=== PATIENT | female | born 2005 | race Caucasian/White ===

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

== ENCOUNTER 2024-02-13 10:54 | Inpatient (IN) | payer MEDICAID ==
[~2024-02-13] VITALS: Ht 160 cm; Wt 92.7 kg
[2024-02-13 12:45] VITALS: BP 117/60; TEMP 97.2; O2SAT 99
[2024-02-13] MEDS ORDERED: ACET1TAB55 PO (16:47)
[2024-02-13] MEDS ORDERED: METH-1164 PO (16:47)
[2024-02-13] MEDS ORDERED: CAPS42.54 TOP (16:47)
[2024-02-13] MEDS ORDERED: PREG25CA PO (16:47)
[2024-02-13] MEDS ORDERED: MORP15TA2 PO (16:47)
[2024-02-13] MEDS ORDERED: MIRA3350 PO (16:47)
[2024-02-13] MEDS ORDERED: DOCU100C16 PO (16:47)
[2024-02-13] MEDS ORDERED: LIDO1ADH20 TP (16:47)
[2024-02-13] MEDS ORDERED: IBUP1TAB5 PO (16:47)
[2024-02-13] MEDS ORDERED: SENN-186 PO (16:47)
[2024-02-13] MEDS ORDERED: MOM30SS2 PO (16:47)
[2024-02-13] MEDS ORDERED: THERTAB52 PO (16:47)
[2024-02-13] MEDS ORDERED: FLOM0.4C39 PO (16:47)
[2024-02-13] MEDS ORDERED: HOME MED LIST COMPLETE! XX SCH (16:50)
[2024-02-13] MEDS: methocarbamoL 500 MG TAB PO SCH (17:55)
[2024-02-13] MEDS: IBUPROFEN 400MG TAB PO PRN (17:55)
[2024-02-13 20:02] VITALS: BP 110/65; TEMP 97.9; O2SAT 98
[2024-02-13] MEDS: SENNA 8.6 MG TAB (SENOKOT) PO SCH (20:32)
[2024-02-13] MEDS: DOCUSATE SODIUM 100MG CAPSULE PO SCH (20:33)
[2024-02-13] MEDS: PREGABALIN 25 MG CAP (LYRICA) PO SCH (20:33)
[2024-02-13] MEDS: ENOXAPARIN 40MG/0.4ML SYRINGE (J1650 PER 10MG) SC SCH (20:34)
[2024-02-14 04:51] VITALS: BP 114/64; TEMP 97.8; O2SAT 96
[2024-02-14 06:18] LABS: BASO # 0.1 10^3/uL (0.0-0.2); BASO % 0.9 % (0.0-1.0); EOS # 0.1 10^3/uL (0.0-0.5); EOS % 1.8 % (0.0-3.0); HEMATOCRIT 33.4 % (36.0-47.0); HEMOGLOBIN 10.6 g/dl (12.0-15.5); LYMPH # 1.9 10^3/uL (1.5-5.0); LYMPH % 23.6 % (24.0-44.0); MEAN CORPUSCULAR HEMOGLOBIN 29.1 pg (27.0-33.0); MEAN CORPUSCULAR HGB CONC 31.7 g/dl (32.0-36.5); MEAN CORPUSCULAR VOLUME 91.8 fl (80.0-96.0); MONO # 0.5 10^3/uL (0.0-0.8); MONO % 6.8 % (2.0-8.0); NEUTROPHILS # 5.2 10^3/uL (1.5-8.5); NEUTROPHILS % 65.5 % (36.0-66.0); PLATELET COUNT, AUTOMATED 603 10^3/uL (150-450); RED BLOOD COUNT 3.64 10^6/uL (4.00-5.40); WHITE BLOOD COUNT 7.9 10^3/uL (4.0-10.0)
[2024-02-14] MEDS: MSIR PO PRN (06:37)
[2024-02-14] MEDS: MORPHINE 15 MG PO PRN (06:37)
[2024-02-14 06:46] LABS: ALBUMIN 3.1 G/DL (3.2-5.2); ALKALINE PHOSPHATASE 183 U/L (35-104); ALT/SGPT 36 U/L (7.0-40); AST/SGOT < 8 U/L (<34); BILIRUBIN,TOTAL 0.5 MG/DL (0.3-1.2); BLOOD UREA NITROGEN 13 MG/DL (9-23); CALCIUM LEVEL 9.7 MG/DL (8.5-10.1); CARBON DIOXIDE LEVEL 27 MMOL/L (20-31); CHLORIDE LEVEL 106 MMOL/L (98-107); GLUCOSE, FASTING 95 MG/DL (60-100); POTASSIUM SERUM 4.6 MMOL/L (3.5-5.1); SODIUM LEVEL 140 MMOL/L (136-145); TOTAL PROTEIN 6.6 G/DL (5.7-8.2)
[2024-02-14] MEDS: TAMSULOSIN 0.4 MG CAP PO SCH (07:07)
[2024-02-14] MEDS: LIDOCAINE 5% (LIDODERM) PATCH TD SCH (07:08)
[2024-02-14] MEDS: MOM 30ML SUSPENSION UDC PO SCH (07:12)
[2024-02-14] MEDS: MIRALAX *UNIT DOSE* 17GM PACKET PO SCH (07:13)
[2024-02-14 12:00] VITALS: BP 104/59; TEMP 98.3; O2SAT 97
[2024-02-14] MEDS: ACETAMINOPHEN 325 MG TAB PO PRN (19:59)
[2024-02-14 20:00] VITALS: BP 108/56; TEMP 97; O2SAT 100
[2024-02-15 04:00] VITALS: BP 109/68; TEMP 97.9; O2SAT 97
[2024-02-15 08:50] VITALS: BP 97/56; TEMP 101.1; O2SAT 87
[2024-02-15 12:00] VITALS: BP 120/62; TEMP 98.5; O2SAT 98
[2024-02-15 16:13] LABS: Trichomonas vaginalis (AMP) NOT DETECTED (NEGATIVE)
[2024-02-15 16:37] LABS: GC DNA AMPLIFICATION NEGATIVE (NEGATIVE)
[2024-02-15 20:00] VITALS: BP 98/50; TEMP 98.1; O2SAT 100
[2024-02-15] MEDS: RAMELTEON 8 MG TAB (ROZEREM) PO PRN (21:53)
[2024-02-16 04:00] VITALS: BP 119/63; TEMP 98.9; O2SAT 96
[2024-02-16 07:31] LABS: HEMATOCRIT 36.5 % (36.0-47.0); HEMOGLOBIN 11.4 g/dl (12.0-15.5); MEAN CORPUSCULAR HEMOGLOBIN 28.6 pg (27.0-33.0); MEAN CORPUSCULAR HGB CONC 31.2 g/dl (32.0-36.5); MEAN CORPUSCULAR VOLUME 91.7 fl (80.0-96.0); PLATELET COUNT, AUTOMATED 593 10^3/uL (150-450); RED BLOOD COUNT 3.98 10^6/uL (4.00-5.40); WHITE BLOOD COUNT 7.1 10^3/uL (4.0-10.0)
[2024-02-16 12:00] VITALS: BP 118/62; TEMP 98; O2SAT 95
[2024-02-16 19:52] VITALS: BP 108/61; TEMP 98.4; O2SAT 98
[2024-02-17 04:19] VITALS: BP 113/65; TEMP 97.4; O2SAT 96
[2024-02-17 12:00] VITALS: BP 111/56; TEMP 97.7; O2SAT 95
[2024-02-17 15:47] LABS: APPEARANCE, URINE HAZY (CLEAR); BACTERIA, URINE AUTO 1+ (NEGATIVE); BILIRUBIN, URINE AUTO NEGATIVE (NEGATIVE); BLOOD, URINE BLOOD NEGATIVE (NEGATIVE); COLOR, URINE YELLOW (YELLOW); GLUCOSE, URINE (UA) AUTO NEGATIVE (NEGATIVE); KETONE, URINE AUTO NEGATIVE (NEGATIVE); LEUKOCYTE ESTERASE, URINE AUTO 1+ (NEGATIVE); MUCUS, URINE SMALL (NEGATIVE); NITRITE, URINE AUTO NEGATIVE (NEGATIVE); PROTEIN, URINE AUTO NEGATIVE (NEGATIVE); RBC, URINE AUTO 1 /HPF (0-3); SPECIFIC GRAVITY URINE AUTO 1.014 (1.002-1.035); SQUAMOUS EPITHELIAL CELL UR AU 4 /HPF (0-6); WBC, URINE AUTO 43 /HPF (0-3)
[2024-02-17 19:38] VITALS: BP 125/60; TEMP 97.6; O2SAT 98
[2024-02-17] MEDS: NITROFURANTOIN (MACROBID) 100 MG CAP PO SCH (21:10)
[2024-02-18 04:49] VITALS: BP 105/58; TEMP 98; O2SAT 97
[2024-02-18] MEDS: PANTOPRAZOLE 20 MG TAB PO SCH (09:46)
[2024-02-18 12:39] VITALS: BP 116/62; TEMP 97.8; O2SAT 97
[2024-02-18] MEDS ORDERED: ONDANSETRON 4MG ORAL DISINTEGRATING TAB PO PRN (14:05)
[2024-02-18] MEDS: DICLOFENAC EPOLAMINE 1.3% PATCH TOP ONE (15:02)
[2024-02-18 19:48] VITALS: BP 110/58; TEMP 98.6; O2SAT 98
[2024-02-19 04:11] VITALS: BP 109/61; TEMP 98.1; O2SAT 98
[2024-02-19 06:38] LABS: HEMATOCRIT 36.1 % (36.0-47.0); HEMOGLOBIN 11.2 g/dl (12.0-15.5); MEAN CORPUSCULAR HEMOGLOBIN 28.4 pg (27.0-33.0); MEAN CORPUSCULAR VOLUME 91.4 fl (80.0-96.0); PLATELET COUNT, AUTOMATED 493 10^3/uL (150-450); RED BLOOD COUNT 3.95 10^6/uL (4.00-5.40); WHITE BLOOD COUNT 6.4 10^3/uL (4.0-10.0)
[2024-02-19] MEDS ORDERED: LIDOCAINE 5% (LIDODERM) PATCH TD SCH (09:00)
[2024-02-19] MEDS: DICLOFENAC EPOLAMINE 1.3% PATCH TOP SCH ×2 (09:09→16:43)
[2024-02-19 12:00] VITALS: BP 117/66; TEMP 98.2; O2SAT 97
[2024-02-19] MEDS: LIDOCAINE 5% (LIDODERM) PATCH TD SCH (16:43)
[2024-02-19 20:00] VITALS: BP 115/58; TEMP 98.8; O2SAT 98
[2024-02-20 04:00] VITALS: BP 110/60; TEMP 98.3; O2SAT 98
[2024-02-20] MEDS ORDERED: LIDO5TD TD (11:02)
[2024-02-20] MEDS ORDERED: PANT20TA51 PO (11:02)
[2024-02-20] MEDS ORDERED: MORP15TA2 PO (11:02)
[2024-02-20] MEDS ORDERED: DICL1PAT6 TOP (11:02)
[2024-02-20] MEDS ORDERED: RAME8TAB2 PO (11:02)
[2024-02-20] MEDS ORDERED: PREG25CA PO (11:02)
[2024-02-20] MEDS ORDERED: MACR100C43 PO (11:02)
[2024-02-20] MEDS ORDERED: ECOT81TA5 PO (11:02)
[2024-02-20] MEDS ORDERED: METH-1164 PO (11:02)
[2024-02-20 12:00] VITALS: BP 106/64; TEMP 97.6; O2SAT 97
[2024-02-20 20:00] VITALS: BP 114/59; TEMP 98.4; O2SAT 98
[2024-02-21 04:00] VITALS: BP 108/66; TEMP 97.4; O2SAT 100
== END 2024-02-21 10:45 | disposition home or self-care (01) | DRG 862 ==
LOC: M PM&R 12:26
PROVIDERS: ADMIT Physical Medicine & Rehabilitation; ATTEND Physical Medicine & Rehabilitation
DX: S32.82XD Multiple fractures of pelvis without disruption of pelvic ring, subsequent encounter for fracture with routine healing (principal); F32.A Depression, unspecified; S36.039D Unspecified laceration of spleen, subsequent encounter; S36.113D Laceration of liver, unspecified degree, subsequent encounter; S22.32XD Fracture of one rib, left side, subsequent encounter for fracture with routine healing; S32.10XD Unspecified fracture of sacrum, subsequent encounter for fracture with routine healing; M79.662 Pain in left lower leg; S06.0X9D Concussion with loss of consciousness of unspecified duration, subsequent encounter; R25.2 Cramp and spasm; R51.9 Headache, unspecified; R53.83 Other fatigue; K59.00 Constipation, unspecified; R33.9 Retention of urine, unspecified; R30.0 Dysuria; Z74.09 Other reduced mobility; Z74.1 Need for assistance with personal care